=== PATIENT | female | born 1970 | race Caucasian/White ===

== ENCOUNTER → 2016-11-07 | Outpatient (CLI) | payer OTHER ==
--- NOTE | 2016-11-08 17:25 | CPEEG ---
[f rep st] ELECTROENCEPHALOGRAM EEG. DATES OF STUDY: 11/07/2016. DATE OF INTERPRETATION: 11/08/2016. FINDINGS: Normal EEG during wakefulness and sleep. There was no potentially epileptogenic abnormal ities present during the recording. Part of this EEG contains 9-10 Hz alpha to the posterior head regions. There was no abnormal activa tion at rest, during photic stimulation, or hyperventilation. The patient became drowsy and fell as leep during the study. There was no abnormal activation during drowsiness, sleep, or during times o f arousal. /[id number]/MODL
== END ==
LOC: FCPNEURO 09:16
PROVIDERS: ATTEND Psychiatry & Neurology Neurology
DX: R43.1 Parosmia (principal); H53.9 Unspecified visual disturbance

== ENCOUNTER → 2016-11-09 | Outpatient (CLI) | payer OTHER ==
[~2016-11-09] MED LIST: GADOBUTROL 10 ML VIAL IVP ONE
== END ==
LOC: FIMAGING 18:43
PROVIDERS: ATTEND Psychiatry & Neurology Neurology
DX: R43.1 Parosmia (principal); R51 Headache; H53.9 Unspecified visual disturbance
CPT/HCPCS: A9585